=== PATIENT | male | born 1945 | race Caucasian/White ===

== ENCOUNTER → 2019-09-26 | Outpatient (CLI) | payer OTHER ==
[~2019-09-26] VITALS: Ht 172.7 cm; Wt 64.9 kg
[~2019-09-26] MED LIST: ASPIR 8181 MG PO
--- NOTE | 2019-09-26 10:04 | P ---
[facility] [place] [address] PROCEDURE REPORT Name: ERNESTO BERRIOS Room #: REG [facility]#: [id number] Admission: 09/26/19 Attend Phys: Sharad Deluca MD Discharge: Date of : 45 Report #: [id number] THIS REPORT FOR: //name// CC: Sharad Samayoa MD DATE OF SERVICE: 09/26/2019 BRIEF HISTORY: The patient is a 74-year-old male with a history of colon adenomas for high risk screening colonoscopy. PREOPERATIVE DIAGNOSIS: High risk screening colonoscopy. POSTOPERATIVE DIAGNOSES: 1. Diminutive polyp, hepatic flexure. 2. Moderate sigmoid diverticulosis coli. 3. Internal hemorrhoids. MEDICATIONS: Deep sedation with propofol per anesthesia. SPECIMEN: Polyp from hepatic flexure. ESTIMATED BLOOD LOSS: 3 mL. PROCEDURE: Colonoscopy to cecum and terminal ileum with biopsy. FINDINGS: Prior to propofol sedation, procedure of colonoscopy was discussed with the patient as well as potential risks and its complications. He indicates he understands and desires to proceed. DESCRIPTION OF PROCEDURE: With the patient in left lateral decubitus position, digital examination was completed, which revealed no abnormalities. Subsequently, the Olympus video colonoscope was introduced in the rectum, advanced under direct vision to the cecum. Done with minimal difficulty. The cecum was identified by the ileocecal valve and the appendiceal orifice. I was able to visualize the distal segment of terminal ileum, which was inspected and noted to be unremarkable. At that point, the scope was slowly withdrawn and careful circumferential views obtained. Upon slow withdrawal of the scope, the prep was excellent. Mucosa was within normal limits, normal vascular pattern, normal light reflex. No abnormalities were noted until the hepatic flexure was reached, at which point a diminutive polyp was seen and removed with biopsy forceps. Scope was further withdrawn through the remainder of the colon and no additional polypoid lesions were seen. Scope was withdrawn in the rectum and no abnormalities were seen. Upon retroflexion, small hemorrhoids were seen. Scope was withdrawn. The patient tolerated the procedure well. [facility] [address] [place] [address] PROCEDURE REPORT Name: ERNESTO BERRIOS Room #: REG [facility].#: [id number] Admission: 09/26/19 Attend Phys: Sharad Deluca MD Discharge: Date of : 45 Report #: [id number] CONDITION OF THE PATIENT UPON DISCHARGE: Following procedure, the patient drowsy, arousable and conversant and will be discharged home when fully ambulatory. INSTRUCTIONS TO THE PATIENT AND FAMILY AT THE TIME OF DISCHARGE: One diminutive polyp identified and removed. We will follow up on the pathology. If this polyp is an adenoma, he should return in 5 years; if not then he should return in 10 years. If his health is good in 10 years and he has good longevity ahead of him, colonoscopy had a colonoscopy at age 84 would be reasonable. Last colonoscopy more than 5 years ago. Withdrawal time from the cecum was 11 minutes 34 seconds. <ELECTRONICALLY SIGNED> By: Sharad Deluca MD 09/26/19 [id number] Sharad Deluca MD /nt
--- NOTE | 2019-09-30 16:06 | PATH ---
[facility] [address] [place] [address] PATHOLOGY RPT PROCEDURE Name: AGUSTINAERNESTO KIRK Room #: REG [facility].#: [id number] Admission: 09/26/19 Date of : 45 Discharge: Report #: [id number] Path Case #: [id number] [facility] Accession Number: [id number] . 01 Material submitted: . hepatic flexure - POLYP AT HEPATIC FLEXURE . 01 Clinical history: . History of colon polyps Colon polyps, diverticulosis, hemorrhoids . 02 Diagnosis: Polyp, at hepatic flexure, endoscopic biopsy: - Minute tubular adenoma arising in a background of hyperplastic polyp. - Negative for high-grade dysplasia. (IUV:toni; 09/30/2019) QMS 09/30/2019 1435 Local . 02 Electronically signed: . Emma Keller MD, Pathologist NPI- [id number] . 01 Gross description: . The specimen is received in formalin, labeled "Lopez, Ernesto, polyp at hepatic flexure" and consists of a fragment of bell tissue measuring 0.3 x 0.3 cm which is entirely submitted in A1. (SDY; 09/27/2019) SYU/SYU 09/27/2019 1217 Local . 02 Pathologist provided ICD-10: D12.6 . 02 CPT . 163970 Specimen Comment: A courtesy copy of this report has been sent to [phone], [phone] Specimen Comment: [phone] Specimen Comment: Report sent to and Performed at: [address], [place], [place] [id number] MD Dustin Justin MD Phone: [phone] Performed at: [address] [id number] MD Emma Keller MD Phone: [phone]
== END | disposition home or self-care (01) ==
LOC: GI 06:25
DX: Z12.11 Encounter for screening for malignant neoplasm of colon (principal); Z86.010 Personal history of colon polyps; D12.3 Benign neoplasm of transverse colon; K57.30 Diverticulosis of large intestine without perforation or abscess without bleeding; K64.8 Other hemorrhoids; K21.9 Gastro-esophageal reflux disease without esophagitis; Z98.890 Other specified postprocedural states; Z85.828 Personal history of other malignant neoplasm of skin
CPT/HCPCS: 62110; 62900